=== PATIENT | male | born 1975 | race Caucasian/White ===

== ENCOUNTER 2020-12-23 15:57 | Emergency (ER) | payer OTHER ==
[2020-12-23 16:23] VITALS: BP 174/108; PULSE 79
--- NOTE | 2020-12-23 17:10 | CR ---
PROCEDURE INFORMATION: Exam: XR Chest Exam date and time: 12/23/2020 4:34 PM Age: 45 years old Clinical indication: Other: Hypertension TECHNIQUE: Imaging protocol: XR of the chest. Views: 2 views. COMPARISON: No relevant prior studies available. FINDINGS: Lungs: Unremarkable. No consolidation. Pleural spaces: Unremarkable. No pleural effusion. No pneumothorax. Heart/Mediastinum: Unremarkable. No cardiomegaly. Bones/joints: Unremarkable. IMPRESSION: No acute findings.
[2020-12-23 17:19] LABS: ANION GAP 13.9 mEq/L (7-13); CHLORIDE,CL 99 mmol/L (98-107); SODIUM,NA 138 mmol/L (136-145)
--- NOTE | 2020-12-23 17:40 | EDM.PDOC ---
Scribed by Carolyn Kern 12/23/20 5232 for Henry Herrera MD ED HPI GENERAL MEDICAL PROBLEM - General Chief Complaint: Cardiovascular Problem Stated Complaint: BLOOD PRESSURE HIGH Time Seen by Provider: 12/23/20 16:14 Source of Information: Reports: Patient, Family, RN, RN Notes Reviewed History Limitations: Reports: No Limitations - History of Present Illness INITIAL COMMENTS - FREE TEXT/NARRATIVE: Patient presents to ED by POV with c/o high BP, and feeling "off" in general. Pt states that he was seen at the dermatology clinic last and was told he has high blood pressure (140s/90s). He reports a headache this morning, aching in his left little finger, and mild nausea. took his blood pressure at home and states the systolic was in the reports BP 167/110 so they came to the ER. Denies chest pain, neck pain, fever, chills, body aches, visual changes, edema, palpitations, or rash. Denies history of HTN. Admits to feeling anxious. Onset: Unknown/Unsure Location: Reports: Generalized Quality: Reports: Other (Denies current pain) Severity: Moderate Improves with: Reports: None Worsens with: Reports: None Associated Symptoms: Reports: No Other Symptoms - Related Data Allergies Allergy/AdvReac Type Severity Reaction Status Date / Time No Known Allergies Allergy Verified 12/23/20 16:23 Home Meds: Home Meds Aspirin 325 mg PO DAILY 06/13/15 [History] Past Medical History - Past Health History Medical/Surgical History: Denies Medical/Surgical History HEENT History: Reports: None Cardiovascular History: Reports: None Respiratory History: Reports: None - Past Surgical History Musculoskeletal Surgical History: Reports: Shoulder Surgery, Other (See Below) Social & Family History - Family History Family Medical History: No Pertinent Family History Cardiac: Reports: None Respiratory: Reports: None GI: Reports: None - Tobacco Use Tobacco Use Status *Q: Never Tobacco User - Alcohol Use Alcohol Use History: Yes Days Per Week of Alcohol Use: 3 ("weekend drinker") Alcohol Use Frequency: Socially - Recreational Drug Use Recreational Drug Use: No - Living Situation & Occupation Living situation: Reports: , with Family Occupation: Employed ED ROS GENERAL - Review of Systems Review Of Systems: Comprehensive ROS is negative, except as noted in HPI. ED EXAM, GENERAL - Physical Exam Exam: See Below Exam Limited By: No Limitations General Appearance: Alert, WD/WN, No Apparent Distress, Anxious Eye Exam: Bilateral Eye: EOMI, Normal Inspection, PERRL Ears: Normal External Exam, Normal Canal, Hearing Grossly Normal, Normal TMs Nose: Normal Inspection, Normal Mucosa, No Blood Throat/Mouth: Normal Inspection, Normal Lips, Normal Teeth, Normal Gums, Normal Oropharynx, Normal Voice, No Airway Compromise Head: Atraumatic, Normocephalic Neck: Normal Inspection, Supple, Non-Tender, Full Range of Motion Respiratory/Chest: No Respiratory Distress, Lungs Clear, Normal Breath Sounds, No Accessory Muscle Use, Chest Non-Tender Cardiovascular: Normal Peripheral Pulses, Regular Rate, Rhythm, No Edema, No Gallop, No JVD, No Murmur, No Rub GI/Abdominal: Normal Bowel Sounds, Soft, Non-Tender, No Organomegaly, No Distention, No Abnormal Bruit, No Mass (Male) Exam: Deferred Rectal (Males) Exam: Deferred Back Exam: Normal Inspection, Full Range of Motion, NT Extremities: Normal Inspection, Normal Range of Motion, Non-Tender, Normal Capillary Refill, No Pedal Edema Neurological: Alert, Oriented, CN II-XII Intact, Normal Cognition, Normal Gait, No Motor/Sensory Deficits Psychiatric: Normal Affect, Anxious Skin Exam: Warm, Dry, Intact, Normal Color, No Rash #1 Interpretation EKG Date: 12/23/20 Time: 16:38 Rhythm: Other (sinus rhythm) Rate (Beats/Min): 59 [place]: Normal P-Wave: Present QRS: Other (anterior, inferioer Q waves. Abnormal R-wave progression, late transition.) ST-T: Normal QT: Normal Course - Vital Signs Last Recorded V/S: Last Vital Signs Temp 98.4 F 12/23/20 16:05 Pulse 79 12/23/20 16:05 Resp 18 12/23/20 16:05 BP 174/108 H 12/23/20 16:05 Pulse Ox 99 12/23/20 16:05 - Orders/Labs/Meds Orders: Active Orders 24 hr Category Date Time Status EKG 12 Lead [EKG Documentation Completion] [RC] STAT Care 12/23/20 16:27 Active Labs: Laboratory Tests 12/23/20 12/23/20 12/23/20 Range/Units 16:42 16:42 16:42 WBC 7.5 (5.0-10.0) 10^3/uL RBC 5.51 (4.6-6.2) 10^6/uL Hgb 17.0 (14.0-18.0) g/dL Hct 48.7 (40.0-54.0) % MCV 88.4 (80-100) fL MCH 30.9 (27.0-34.0) pg MCHC 34.9 (33.0-35.0) g/dL Plt Count 249 (150-450) 10^3/uL Neut % (Auto) 64.3 (42.2-75.2) % Lymph % (Auto) 25.2 (20.5-50.1) % Cross % (Auto) 9.7 H (2-8) % Eos % (Auto) 0.4 L (1.0-3.0) % Baso % (Auto) 0.4 (0.0-1.0) % D-Dimer, Quantitative < 100 (0-400) ng/mL Sodium 138 (136-145) mmol/L Potassium 3.9 (3.5-5.1) mmol/L Chloride 99 (98-107) mmol/L Carbon Dioxide 29 (21-32) mmol/L Anion Gap 13.9 H (7-13) mEq/L BUN 6 L (7-18) mg/dL Creatinine 1.15 (0.70-1.30) mg/dL Est Cr Clr Drug Dosing 90.71 mL/min Estimated GFR (MDRD) > 60 BUN/Creatinine Ratio 5.2 (No establ ref range) Glucose 100 H (70-99) mg/dL Calcium 8.5 (8.5-10.1) mg/dL Magnesium 1.8 (1.8-2.4) mg/dL Total Bilirubin 1.1 H (0.2-1.0) mg/dL AST 103 H (15-37) U/L ALT 122 H (16-63) U/L Alkaline Phosphatase 105 (46-116) U/L Troponin I High Sens 5 (<=76) pg/mL C-Reactive Protein < 0.2 (0.0-0.9) mg/dL Total Protein 7.2 (6.4-8.2) g/dL Albumin 3.7 (3.4-5.0) g/dL Globulin 3.5 Albumin/Globulin Ratio 1.1 TSH, Ultra Sensitive 1.18 (0.36-3.74) uIU/mL Urine Color (YELLOW) Urine Appearance (CLEAR) Urine pH (5.0-9.0) Ur Specific [place] (1.005-1.030) Urine Protein (NEGATIVE) Urine Glucose (UA) (NEGATIVE) Urine Ketones (NEGATIVE) Urine Occult Blood (NEGATIVE) Urine Nitrite (NEGATIVE) Urine Bilirubin (NEGATIVE) Urine Urobilinogen (0.2-1.0) mg/dL Ur Leukocyte Esterase (NEGATIVE) 12/23/20 Range/Units 16:51 WBC (5.0-10.0) 10^3/uL RBC (4.6-6.2) 10^6/uL Hgb (14.0-18.0) g/dL Hct (40.0-54.0) % MCV (80-100) fL MCH (27.0-34.0) pg MCHC (33.0-35.0) g/dL Plt Count (150-450) 10^3/uL Neut % (Auto) (42.2-75.2) % Lymph % (Auto) (20.5-50.1) % Cross % (Auto) (2-8) % Eos % (Auto) (1.0-3.0) % Baso % (Auto) (0.0-1.0) % D-Dimer, Quantitative (0-400) ng/mL Sodium (136-145) mmol/L Potassium (3.5-5.1) mmol/L Chloride (98-107) mmol/L Carbon Dioxide (21-32) mmol/L Anion Gap (7-13) mEq/L BUN (7-18) mg/dL Creatinine (0.70-1.30) mg/dL Est Cr Clr Drug Dosing mL/min Estimated GFR (MDRD) BUN/Creatinine Ratio (No establ ref range) Glucose (70-99) mg/dL Calcium (8.5-10.1) mg/dL Magnesium (1.8-2.4) mg/dL Total Bilirubin (0.2-1.0) mg/dL AST (15-37) U/L ALT (16-63) U/L Alkaline Phosphatase (46-116) U/L Troponin I High Sens (<=76) pg/mL C-Reactive Protein (0.0-0.9) mg/dL Total Protein (6.4-8.2) g/dL Albumin (3.4-5.0) g/dL Globulin Albumin/Globulin Ratio TSH, Ultra Sensitive (0.36-3.74) uIU/mL Urine Color Yellow (YELLOW) Urine Appearance Clear (CLEAR) Urine pH 7.0 (5.0-9.0) Ur Specific [place] 1.015 (1.005-1.030) Urine Protein Negative (NEGATIVE) Urine Glucose (UA) Negative (NEGATIVE) Urine Ketones Negative (NEGATIVE) Urine Occult Blood Negative (NEGATIVE) Urine Nitrite Negative (NEGATIVE) Urine Bilirubin Negative (NEGATIVE) Urine Urobilinogen 0.2 (0.2-1.0) mg/dL Ur Leukocyte Esterase Negative (NEGATIVE) - Radiology Interpretation Free Text/Narrative:: XR Chest: no acute process, normal chest per Rad. report. Departure - Departure Time of Disposition: 17:35 Disposition: Home, Self-Care 01 Condition: Good Clinical Impression: Elevated blood pressure reading without diagnosis of hypertension, Elevated liver enzymes Instructions: Preventing Hypertension, Hypertension, Adult, [id number], Liver Function Tests Forms: ED Department Discharge Additional Instructions: Monitor your blood pressure once or twice a day, record the readings and show your primary doctor the results after one week of data collection. Abstain from alcohol, Tylenol (Acetaminophen), and follow a lower carbohydrate diet due to elevated liver enzymes. Follow up in clinic in one week for further blood pressure, and liver/gallbladder evaluation. Return to ER if your blood pressure is over 200 (top number) or over 115 bottom number. Sepsis Event Note (ED) - Focused Exam Vital Signs: Vital Signs Temp Pulse Resp BP Pulse Ox 12/23/20 16:05 98.4 F 79 18 174/108 H 99 - My Orders Last 24 Hours: My Active Orders 12/23/20 16:27 EKG 12 Lead [EKG Documentation Completion] [RC] STAT - Assessment/Plan Last 24 Hours: My Active Orders 12/23/20 16:27 EKG 12 Lead [EKG Documentation Completion] [RC] STAT I have read and agree with the documentation that has been completed regarding this visit. By signing this record, I attest that the documentation was completed in my physical presence and is an accurate record of the encounter.
== END 2020-12-23 17:56 | disposition home or self-care (01) ==
LOC: DL.ED 15:57
DX: R03.0 Elevated blood-pressure reading, without diagnosis of hypertension (principal); R74.8 Abnormal levels of other serum enzymes; Z79.82 Long term (current) use of aspirin
CPT/HCPCS: 36415; 71046; 80053; 81003; 83735; 84443; 84484; 85025; 85379; 86140; 93005; 93010; 99284; 99284-25

== ENCOUNTER 2024-01-18 05:12 | Emergency (ER) | payer OTHER ==
[2024-01-18] MEDS: Ondansetron 4 MG/2 ML SDV IVPUSH ONE (06:05)
[2024-01-18] MEDS: fentaNYL 100 MCG/2 ML SDV IVPUSH ONE (06:07)
[2024-01-18] MEDS: Sodium Chloride 0.9% 10 ML Syringe FLUSH PRN (06:09)
[2024-01-18 06:15] LABS: BASOPHILS PERCENT AUTO 0.2 % (0.0-1.0); HEMATOCRIT 48.3 % (40.0-54.0); HEMOGLOBIN 17.1 g/dL (14.0-18.0); LYMPHOCYTES PERCENT AUTO 12.8 % (20.5-50.1); MEAN CORPUSCULAR HEMOGLOBIN 30.8 pg (27.0-34.0); MEAN CORPUSCULAR HGB CONC 35.4 g/dL (33.0-35.0); MONOCYTES PERCENT AUTO 5.9 % (2-8); NEUTROPHILS PERCENT AUTO 81.1 % (42.2-75.2); PLATELET COUNT,PLT 329 10^3/uL (150-450); RED BLOOD CELL COUNT 5.55 10^6/uL (4.6-6.2)
[2024-01-18 06:26] LABS: A/G RATIO 1.1; ALANINE AMINOTRANSFERASE,ALT 46 U/L (16-63); ALBUMIN 3.8 g/dL (3.4-5.0); ALKALINE PHOSPHATASE 88 U/L (46-116); ASPARTATE AMNIOTRANSFERASE,AST 27 U/L (15-37); BILIRUBIN TOTAL 1.6 mg/dL (0.2-1.0); BLOOD UREA NITROGEN,BUN 18 mg/dL (7-18); BUN/CREATININE RATIO 13.1 (No establ ref range); CALCIUM 9.9 mg/dL (8.5-10.1); CARBON DIOXIDE,CO2 32 mmol/L (21-32); CHLORIDE,CL 100 mmol/L (98-107); CREATININE 1.37 mg/dL (0.70-1.30); EST CRCL DRUG DOSING (CG) 73.71 mL/min; GLUCOSE RANDOM 161 mg/dL (70-99); LIPASE 49 U/L (16-77); PROTEIN TOTAL,TP 7.4 g/dL (6.4-8.2); SODIUM,NA 138 mmol/L (136-145)
[2024-01-18 06:32] LABS: C-REACTIVE PROTEIN < 0.50 ng/dL (<=0.50); ESTIMATED GFR 63 mL/min (>=60)
[2024-01-18 06:42] LABS: LACTIC ACID 1.7 mmol/L (0.4-2.0)
[2024-01-18] MEDS: Iopamidol 612 MG/ML 100 ML Bottle IVPUSH ONE (06:52)
[2024-01-18] MEDS: HYDROmorphone 1 MG/ML Syringe IVPUSH ONE (07:01)
[2024-01-18] MEDS: Sodium Chloride 0.9% 1,000 ML IV ONE (07:26)
[2024-01-18] MEDS: Ketorolac 30 MG/ML SDV IVPUSH ONE (08:22)
[2024-01-18 08:45] VITALS: BP 136/94; PULSE 60
== END 2024-01-18 09:26 | disposition home or self-care (01) ==
LOC: DL.ED 05:12
DX: K80.20 Calculus of gallbladder without cholecystitis without obstruction (principal); K76.0 Fatty (change of) liver, not elsewhere classified; Z79.899 Other long term (current) drug therapy
CPT/HCPCS: 36415; 74177; 80053; 83605; 83690; 84145; 84484; 85025; 86140; 93005; 96361; 96374; 96375; 99284; J1170; J1885; J2405; J3010; J7030; Q9967; 93010; J3490